=== PATIENT | male | born 1935 | race Caucasian/White ===

== ENCOUNTER → 2017-01-12 | Outpatient (CLI) | payer MEDICARE ==
[~2017-01-12] MED LIST: AMLODIPINE BESYL5 MG PO; ASPIRIN325 M1 PO; BAYER ASPIRIN325 M1 PO; CIPRO PO; CIPRO250 MG PO; CLEOCIN HCL300 M1 PO; COATED ASPIRIN325 M1 PO; COLACE PO; DARVOCET-N 1001 TAB PO; DOESN'T KNOW MEDS; FLAGYL PO; HYDROCODONE-APA1 T41 PO; KEFLEX PO; LEVAQUIN250 MG PO; LIDODERM30 EA TOP; LITE COAT ASPI325 M1 PO; LORCET HD CAPSU1 CA1 PO; LORTAB 5/500 TA1 TA1 PO; MIRALAX17 GM DOB; NEURONTIN300 MG PO; NIACIN500 M2 PO; NORVASC PO; OMEPRAZOLE40 MG PO; PANTOPRAZOLE SO40 MG PO; PERCOCET5/325 PO; PHENERGAN25 M1 PO; PLAVIX PO; PROAIR HFA8.5 GM IH; PROTONIX PO; RYBIX ODT50 MG PO; SIMVASTATIN20 MG PO; SIMVASTATIN40 MG PO; TESSALON200 MG PO; VITAMIN C1000 M1 PO; ZITHROMAX PO; ZITHROMAX1 G/PKT PO; ZOCOR PO; ZOCOR20 MG PO; ZOFRAN ODT4 MG PO; ZOVIRAX800 MG PO
--- NOTE | ~2017-01-12 | CT2 ---
[facility] A Service of [facility] RADIOLOGY TEXT RESULTS PATIENT: LUZ ELENA BAGLEY LOCATION: [facility] M[facility] BL[facility] CAMPUST : 33 UNIT #: [id number] AGE: [address]: Clint Coy MD SEX: M ORDER DR: [id number] [place], [place] [address] [id number] O MR#: [id number] Acc #: [id number] NAME: LUZ ELENA BAGLEY : 1935 SEX: M STUDY DATE/TIME: 01/12/2017 14:18 UNIT: [facility]AT ROOM: STUDY DESCRIPTION: CT Abd and Pelv W Cont Attending Physician: Clint Coy M.D. Referring Physician: Clint Coy M.D. Ordering Physician: Clint Coy M.D. Primary Care Physician: Messi Caruso M.D. MEDICAL IMAGING REPORT This report is preliminary unless electronic signature is present EXAM CT of abdomen and pelvis with contrast. DATE OF EXAM 01/12/2017 INDICATIONS Epigastric abdominal pain, right lower quadrant abdominal pain for the past month. PROCEDURE Contrast-enhanced CT of the abdomen and pelvis. 100 mL of Isovue-370. COMPARISON 10/20/2016 TECHNIQUE NOTE: This CT exam was performed with one or more of the following radiation dose reduction techniques: automatic exposure control, adjustment of mA and/or kV according to patient size, and iterative reconstruction. FINDINGS ABDOMEN WITH CONTRAST: Included lung bases are clear. The liver, spleen, kidneys, adrenal glands and pancreas show no acute abnormality. Previous cholecystectomy. Small cysts at the lower pole of the right kidney. Uncomplicated sigmoid diverticula. Moderate colonic stool burden. Appendix is normal. PELVIS WITH CONTRAST: Prostate measures 5 cm. No pelvic mass or fluid. No aggressive-appearing bone lesion. [facility] A Service of [facility] RADIOLOGY TEXT RESULTS PATIENT: LUZ ELENA BAGLEY LOCATION: [facility] M[facility] [employer] : 33 UNIT #: [id number] AGE: [address]: Clint Coy MD SEX: M ORDER DR: IMPRESSION 1. No acute findings. 2. Moderate colonic stool burden. 3. Uncomplicated sigmoid diverticula. 4. Mild prostatomegaly. Dictated by... Len Lantigua M.D. THIS IS AN ELECTRONICALLY VERIFIED REPORT Len Lantigua M.D. at 01/13/2017 3:04 PM APOLONIA/manuela TD: 01/12/2017 21:20 JOB #: [id number] MEDICAL IMAGING REPORT COPY
[2017-01-12 13:11] LABS: BASOPHIL% 0.6 % (0-2.5); EOSINOPHIL# 0.1 X10e3 (0-0.7); EOSINOPHIL% 1.9 % (0.0-7.0); HEMATOCRIT 42.8 % (38.0-50.0); HEMOGLOBIN 14.8 gm/dL (13.0-16.0); LYMPHOCYTE# 2.3 X10e3 (1.0-3.5); LYMPHOCYTE% 31.8 % (17.0-45.0); MEAN CELL VOLUME 89.8 FL (83-96); MEAN CORPUSCULAR HEMOGLOBIN 30.9 PG (28-34); MEAN CORPUSCULAR HGB CONC 34.5 g/dL (30-36); MEAN PLATELET VOLUME 8.3 FL (6.5-11.5); MONOCYTE# 0.9 X10e3 (0-1.0); MONOCYTE% 12.8 % (3.0-12.0); NEUTROPHIL# 3.8 X10e3 (1.5-7.1); NEUTROPHIL% 52.9 % (40-75); PLATELET COUNT 157 X10e3 (140-420); RED BLOOD COUNT 4.77 X10e (3.90-5.60); RED CELL DISTRIBUTION WIDTH 13.5 % (11.0-15.5); WHITE BLOOD COUNT 7.1 X10e3 (4.0-10.5)
[2017-01-12 13:14] LABS: DIFF IND NO
[2017-01-12 14:02] LABS: ALBUMIN SERUM 4.4 g/dL (3.5-5.0); ALKALINE PHOSPHATASE 86 U/L (32-92); ALT (SGPT) 27 U/L (10-40); AST (SGOT) 25 U/L (10-42); BILIRUBIN,TOTAL 0.8 mg/dL (0.2-2.0); BLOOD UREA NITROGEN 21 mg/dL (9-23); CALCIUM SERUM 9.2 mg/dL (8.4-10.2); CARBON DIOXIDE 23 mmol/L (22-31); CHLORIDE 108 mmol/L (100-111); GLOM FILT RATE Estimated ABOVE60 mL/min (>60); GLUCOSE FASTING 97 mg/dL (70-110); POTASSIUM 4.3 mmol/L (3.5-5.1); PROTEIN TOTAL SERUM 7.5 g/dL (6.0-8.3); SODIUM 139 mmol/L (135-145)
== END | disposition home or self-care (01) ==
LOC: CLAB 12:12
PROVIDERS: Internal Medicine Gastroenterology
DX: K57.92 Diverticulitis of intestine, part unspecified, without perforation or abscess without bleeding (principal); R10.9 Unspecified abdominal pain; K57.30 Diverticulosis of large intestine without perforation or abscess without bleeding; N40.0 Benign prostatic hyperplasia without lower urinary tract symptoms
CPT/HCPCS: 36415; 74177; 80053; 85025; Q9967